=== PATIENT | female | born 1970 | race Caucasian/White ===

== ENCOUNTER 2024-02-09 16:53 | Emergency (ER) | payer SELFPAY ==
[2024-02-09 16:55] VITALS: BP 127/90
--- NOTE | 2024-02-09 16:59 | ED.GENMED ---
ED Provider Triage
<Rosanne Angelo GETTERING OPERATOR - Last Filed: 02/10/24 13:25>
-
Patient seen by provider in Triage?: Seen in Triage
Attestation: A medical screening examination has been initiated by a qualified medical provider. Based on the assessment performed at this time, it has been determined that an emergent medical condition may exist and the patient has been informed
that further medical evaluation and possible additional diagnostic testing may be needed.
HPI: 53 yo female here for 'head is spinning,' nausea. Sudden onset one hour ago at home.
Has been here for similar symptoms several times. States feels like 'something is squeezing her head and when she puts her head down it it spinning' (inside her head, not room spinning).
States similar to previous migraines.
GENERAL: Alert , in no apparent distress
EYE: No visual abnormalities. No nystagmus, PERRL, EOMS intact.
ENT: No visible abnormalities.
LUNGS: No acute respiratory distress
CARDIAC: RRR, no murmur
NEUROLOGICAL: Alert and oriented
SKIN: Skin intact. No visible changes.
MUSCULOSKELETAL: Moving extremities normally
PSYCH: Anxious, appropriate interaction.
This is a medical evaluation conducted in person to initiate diagnostic evaluation and provide initial therapeutics. Please see further documentation by the treating clinician.
History of Present Illness
<Rosanne Angelo, GETTERING OPERATOR - Last Filed: 02/10/24 13:25>
General
Chief Complaint: Dizziness
Source: patient and family (son at bedside)
Exam Limitations: none
Time Seen by Provider: 02/09/24 18:00
Nursing documentation reviewed up to this point in time: agreed with
History of Present Illness
History of Present Illness:
53 yo female here for 'head is spinning,' nausea. Sudden onset one hour ago at home.
Has been here for similar symptoms several times. States feels like 'something is squeezing her head and when she puts her head down it it spinning' (inside her head, not room spinning).
States similar to previous migraines.
No recent head injury. Nausea no vomiting. Denies change in vision.
Past History
<Rosanne Angelo, GETTERING OPERATOR - Last Filed: 02/10/24 13:25>
Past History
ED Past Medical History: Other (migraines, vertigo, cholelithiasis); Negative Asthma, HTN, Hypercholesterolemia or NIDDM
ED Past Surgical History: None
Social History
Tobacco: Non-smoker
Alcohol: None
Personal:
Living: with family
Employment: Not employed
Family History
Family History: Other (Noncontributory)
Review of Systems
<Rosanne Angelo, GETTERING OPERATOR - Last Filed: 02/10/24 13:25>
Review of Systems
Allergies reviewed?: Yes
All Other Systems: ROS reviewed and negative except as documented in HPI and ROS
Constitutional: Denies fever
Respiratory: Denies trouble breathing
Cardiac: Denies chest pain
ABD/GI: Reports nausea; Denies abdominal pain or vomiting
Musculoskeletal: Reports no symptoms
Skin: Reports no symptoms
Neurological: Reports dizzy; Denies weakness
Phy Exam
<Rosanne Angelo, GETTERING OPERATOR - Last Filed: 02/10/24 13:25>
Physical Exam
Physical Exam:
GENERAL: No acute distress. A&Ox3.
CONSTITUTIONAL: Afebrile.
EYES: PERRL, conjunctivae normal, EOMs intact, no nystagmus
Neck: Supple
ENMT: moist mucus membranes, Pharynx nl
RESPIRATORY: Regular respirations, nonlabored, tachypneic, taking long, sighing respirations, appears to be hyperventilating, lungs clear.
CARDIOVASCULAR: Regular rate and rhythm, no murmurs, no rubs.
GI: Soft, nontender
MUSCULOSKELETAL: Moves with ease. Well perfused.
SKIN: Warm, dry, pink
PSYCH: Anxious mood and affect. Well kept, interactive and appropriate
NEUROLOGIC: Awake, alert and oriented. Speech clear. Strength equal throughout. No focal neurological deficits
Course
<Rosanne Angelo, GETTERING OPERATOR - Last Filed: 02/10/24 13:25>
Orders/Labs/Results
Orders:
Orders
02/09/24 17:02
Ketorolac [Toradol] 30 mg IM NOW STA
Ondansetron Orally Disint [Zofran Odt (Orally Disintegrating)] 4 mg PO NOW STA
02/09/24 17:21
Complete Blood Count/With Diff Urgent
Comprehensive Metabolic Panel Urgent
02/09/24 18:10
diazePAM [Valium Injection] 2 mg IV NOW STA
02/09/24 19:47
Meclizine [Antivert] 25 mg PO NOW STA
Ondansetron Injectable [Zofran] 4 mg IV NOW STA
02/09/24 19:48
CT Head W/o Iv Contrast Urgent
Comment:
Reason For Exam: dizziness, n/v
02/09/24 22:22
0.9% Sodium Chloride 1000 ml [Nss] 1,000 ml IV BOLUS
Abnormal Lab Results
02/09/24
17:21
MCH 31.7 H pg
(27.0-31.0)
Absolute Monos (auto) 0.8 H 10^3/uL
(0.1-0.6)
Monocytes % 10.1 H %
(1.7-9.3)
Carbon Dioxide 14 L* mmol/L
(22-30)
Creatinine 0.5 L mg/dL
(0.6-1.0)
Glucose 142 H mg/dl
(70-99)
AST 40 H U/L
(14-36)
ALT 39 H U/L
(0-35)
02/09/24 17:21
02/09/24 17:21
Vital Signs
Initial and Last Documented VS:
Initial Vital Signs
Temp Pulse Resp BP Pulse Ox
98.3 F 83 16 127/90 98
02/09/24 16:55 02/09/24 16:55 02/09/24 16:55 02/09/24 16:55 02/09/24 16:55
Last Documented Vital Signs
Temp Pulse Resp BP Pulse Ox
98.3 F 70 16 117/80 99
02/09/24 16:55 02/10/24 00:22 02/10/24 00:22 02/10/24 00:22 02/10/24 00:22
<Lake Pimentel Jr., PA-C - Last Filed: 02/09/24 23:39>
Orders/Labs/Results
Orders:
Orders
02/09/24 17:02
Ketorolac [Toradol] 30 mg IM NOW STA
Ondansetron Orally Disint [Zofran Odt (Orally Disintegrating)] 4 mg PO NOW STA
02/09/24 17:21
Complete Blood Count/With Diff Urgent
Comprehensive Metabolic Panel Urgent
02/09/24 18:10
diazePAM [Valium Injection] 2 mg IV NOW STA
02/09/24 19:47
Meclizine [Antivert] 25 mg PO NOW STA
Ondansetron Injectable [Zofran] 4 mg IV NOW STA
02/09/24 19:48
CT Head W/o Iv Contrast Urgent
Comment:
Reason For Exam: dizziness, n/v
02/09/24 22:22
0.9% Sodium Chloride 1000 ml [Nss] 1,000 ml IV BOLUS
Abnormal Lab Results
02/09/24
17:21
MCH 31.7 H pg
(27.0-31.0)
Absolute Monos (auto) 0.8 H 10^3/uL
(0.1-0.6)
Monocytes % 10.1 H %
(1.7-9.3)
Carbon Dioxide 14 L* mmol/L
(22-30)
Creatinine 0.5 L mg/dL
(0.6-1.0)
Glucose 142 H mg/dl
(70-99)
AST 40 H U/L
(14-36)
ALT 39 H U/L
(0-35)
02/09/24 17:21
02/09/24 17:21
Vital Signs
Initial and Last Documented VS:
Initial Vital Signs
Temp Pulse Resp BP Pulse Ox
98.3 F 83 16 127/90 98
02/09/24 16:55 02/09/24 16:55 02/09/24 16:55 02/09/24 16:55 02/09/24 16:55
Last Documented Vital Signs
Temp Pulse Resp BP Pulse Ox
98.3 F 70 16 117/80 99
02/09/24 16:55 02/10/24 00:22 02/10/24 00:22 02/10/24 00:22 02/10/24 00:22
<Rosanne Angelo, GETTERING OPERATOR - Last Filed: 02/10/24 13:25>
MDM/Problems Addressed
Differential Diagnosis Includes:
BPPV, labyrinthitis, vestibular neuritis
Hyperventilation
MDM/Problems Addressed:
53 yo female here for 'head is spinning,' nausea. Sudden onset one hour ago at home.
Has been here for similar symptoms several times. States feels like 'something is squeezing her head and when she puts her head down it it spinning' (inside her head, not room spinning).
States similar to previous migraines.
No recent head injury. Nausea no vomiting. Denies change in vision. Pt is taking frequent very deep breaths, moaning, concern for hyperventilating
CBC: Normal
CMP: Bicarb 14 consistent with pt's hyperventilating. Mild elevation ALT, AST.
6:00 p.m.
After medications Toradol and Zofran, appears more calm than initial assessment. Pt denies headache but is still significantly dizzy. Finger to nose intact.
No focal neurological deficits
Will give IV Valium and reevaluate.
7:45
In to re evaluate after IV Valium. Pt states dizziness is about 50% better, still nauseated, still cannot sit up without significant dizziness. Continues to deny headache.
Will obtain head CT, IV Meclizine, repeat Zofran
9:15p.m.
After medications, pt still with dizziness and nausea when she turns her head to the left.
Awaiting Ct scan
10:[address] scan shows no acute findings. Awaiting official radiology read
Into evaluate patient she is still dizzy with any movement and nauseous. Has not vomited since arrival.
She ambulated to BR and back with son gently assisting holding her arm.
she has been drinking loli mike.
Offered admission for intractable nausea and dizziness
She is requesting IV fluids, as that made her feel better in the past
Plan: IVF x 1 liter, if no better, admit
Case discussed with Fady FELIX who will assume care from this point
Expect Bicarb to normalize as pt has not been tachypneic or anxious since shortly after arrival.
Chronic conditions affecting care:
migraines, vertigo
<Lake Pimentel Jr., PA-C - Last Filed: 02/09/24 23:39>
*Critical Care Note
Total Time (30-74mins, 75-104mins- exclusive of procedures): Not Applicable
<Lake Pimentel Jr., PA-C - Last Filed: 02/09/24 23:39>
Update Note
Update Note:
2330: Patient with significant improvement of symptoms after receiving fluids. Stable for discharge will follow-up with ENT. Return precautions given.
ED Attending Note
<Rosanne Angelo NP - Last Filed: 02/10/24 13:25>
-
Portions of this chart may have been created with voice recognition software.� Occasional wrong word or��sound alike� substitutions may have occurred due to the inherent limitations of voice recognition software.
Discharge Plan
Departure
Patient Disposition: Home (Routine Discharge)
Date of Disposition: 02/09/24
Time of Disposition: 23:31
Patient with high blood pressure during this ER visit?: No
Condition: Good
Covid-19: Not Applicable
Discharge Problem:
Dizziness
Instructions: Dizziness, Nonvertigo, (DC)
Prescriptions:
No Action
ibuprofen [Advil] 200 mg Tablet
400 mg PO Q8HPRN PRN (Reason: mild pain)
Migraine Medication
1 tab PO DAILYPRN PRN (Reason: migraine)
Patient Comments:
02/09/24: Migraine medication from [facility].
Referrals:
Bhargavi Parada MD [Family Provider] -
Brigette Grossman MD [Active] - Follow up in 5-7 days
Activity Restrictions/Additional Instructions:
You came to the emergency department today for concerns of dizziness. Please take meclizine 1 tab every 8 hours as needed for ongoing dizziness and follow-up closely with ENT. Return to the emergency department for any worsening, new or concerning
symptoms.
Interventions
Interventions:
*Risk Screen - Suicide Last Done: 02/09/24 17:12
*General Assessment Last Done: 02/09/24 18:06
*Neglect/Abuse Screening Last Done: 02/09/24 17:12
ED- Fall Risk Assessment Last Done: 02/09/24 18:06
*ED COVID-19 Vaccine History Last Done: 02/09/24 18:06
*Nursing Disposition Last Done: 02/10/24 00:22
ED- Neurological Assessment Last Done: 02/09/24 18:07
ED Swallowing Screen Last Done: 02/09/24 18:05
Discharge Date and Time
Discharge Date/Time: 02/10/24 00:23
Print Language: ESTONIAN
[2024-02-09] MEDS: ZOFRAN ODT (ORALLY DISINTEGRATING) 4 MG PO (17:13)
[2024-02-09] MEDS: TORADOL 30 MG IM (17:13)
[2024-02-09 17:33] LABS: % Basophils 0.9 % (0-2); % Eosinophils 0.9 % (0-6); % Immature Granulocytes 0.1 % (0-0.5); % Lymphocytes 36.5 % (20.5-51.1); % Monocytes 10.1 % (1.7-9.3); % Neutrophils 51.5 % (42.2-75.2); Absolute Basophils 0.1 10^3/uL (0-0.2); Absolute Eosinophils 0.1 10^3/uL (0-0.7); Absolute Monocytes 0.8 10^3/uL (0.1-0.6); Absolute Neutrophils 4.2 10^3/uL (1.4-6.5); Hematocrit 37.9 % (37.0-47.0); Hemoglobin 13.4 g/dL (12.0-16.0); Mean Corp Hgb Conc. 35.4 g/dL (33.0-37.0); Mean Corpuscular Hgb 31.7 pg (27.0-31.0); Mean Corpuscular Volume 89.6 fL (81.0-99.0); Mean Platelet Volume 10.2 fL (7.4-10.4); Nucleated Red Blood Cells % 0 %; Platelet Count 325 10^3/uL (130-400); Red Blood Cell Count 4.23 10^6/uL (4.20-5.40); Red Cell Dist. Width 12.2 % (11.5-14.5); White Blood Cell Count 8.1 10^3/uL (4.8-10.8)
[2024-02-09 17:56] LABS: ALT (SGPT) 39 U/L (0-35); AST (SGOT) 40 U/L (14-36); Albumin 4.8 g/dl (3.5-5.0); Alkaline Phosphatase 70 U/L (38-126); Blood Urea Nitrogen 9 mg/dl (7-17); Calcium 9.7 mg/dl (8.4-10.2); Carbon Dioxide 14 mmol/L (22-30); Chloride 105 mmol/L (98-107); Glucose 142 mg/dl (70-99); Potassium 3.8 mmol/L (3.5-5.1); Sodium 139 mmol/L (135-145); Total Bilirubin 0.7 mg/dl (0.2-1.3); Total Protein 7.8 g/dl (6.3-8.2); eGFR > 60.00
[2024-02-09 18:03] VITALS: BP 116/68
--- NOTE | 2024-02-09 18:04 | EDRN ---
Pt states head pain is 6/10 and spinning is 50% better though she remains w/ nausea that came on w/ head movement at this time.
[2024-02-09 18:05] VITALS: BMI 28.2
[2024-02-09] MEDS: VALIUM INJECTION 2 MG IV (18:41)
[2024-02-09] MEDS: ANTIVERT 25 MG PO (20:06)
[2024-02-09] MEDS: ZOFRAN 4 MG IV (20:06)
[2024-02-09 21:37] VITALS: BP 121/77
[2024-02-09] MEDS: NSS 1000 IV (22:25)
[2024-02-10 00:22] VITALS: BP 117/80
== END 2024-02-10 00:23 | disposition home or self-care (01) ==
LOC: EMR 16:53
PROVIDERS: Registered Nurse; EMERGENCY PHYSICIAN Emergency Medicine; FAMILY PHYSICIAN Internal Medicine
DX: R42 Dizziness and giddiness (principal); I10 Essential (primary) hypertension
CPT/HCPCS: 99284; 96374; 96375; 96361; 70450; 80053; 85025